=== PATIENT | male | born 1960 | race Two or more races ===

== ENCOUNTER 2019-07-25 21:28 | Emergency (ER) | payer OTHER ==
[~2019-07-25] VITALS: Ht 160 cm; Wt 59.0 kg
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
[2019-07-25] MEDS ORDERED: VITAMIN B122500 MCG PO (21:37)
--- NOTE | 2019-07-25 22:02 | NUR ---
ED Nurse Note: PT WENT TO CT VIA WHEELCHAIR
--- NOTE | 2019-07-25 22:12 | NUR ---
ED Nurse Note: pt back from ct
[2019-07-25 22:13] VITALS: BP 144/89
--- NOTE | 2019-07-25 22:20 | Diagnostic Imaging Report ---
Indication: Headache Technique: Contiguous 5 mm thick transaxial imaging of the head obtained in a Siemens Sensation [address] scanner. Soft tissue and bone windows generated. Automatic Exposure Control was utilized. Total Dose length Product (DLP): 1125.7mGycm CT Dose Index Volume (CTDIvol): 53.4 mGy Comparison: none Findings: The size and configuration of the cortical sulci, basal cisterns, and ventricles are within normal limits for age. There is no mass effect, midline shift, or edema identified. There is no evidence of acute hemorrhage or abnormal intra-axial or extra-axial fluid collections. The bones and soft tissues are unremarkable. Impression: No mass effect, edema or acute bleed. [facility] has communicated the preliminary results to the Emergency Department. Their findings are largely concordant with this report. The CT scanner at [facility] is accredited by the [employer] and the scans are performed using dose optimization techniques as appropriate to a performed exam including Automatic Exposure control.
--- NOTE | 2019-07-25 22:35 | Diagnostic Imaging Report ---
Indication: Cervical trauma/pain. Technique: Continuous helical imaging of the cervical spine was obtained transaxially from the skull base to the upper thoracic spine. 2-D coronal and sagittal reformatted images were obtained. Automatic Exposure Control was utilized. Total Dose length Product (DLP): 146.[address] Dose Index Volume (CTDIvol): 5.6 mGy Comparison: None Findings: There is no acute fracture or malalignment identified. There is no soft tissue swelling identified. 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 Some of the intervertebral discs show mild narrowing. Impression: No acute injury Mild spondylosis [facility] has communicated the preliminary results to the Emergency Department. Their findings are largely concordant with this report. The CT scanner at [facility] is accredited by the [employer] and the scans are performed using dose optimization techniques as appropriate to a performed exam including Automatic Exposure control.
[2019-07-25] MEDS ORDERED: Ketorolac 30mg Inj IV ONE (23:15)
[2019-07-25] MEDS ORDERED: ROBAXIN-750750 MG PO (23:31)
[2019-07-25] MEDS ORDERED: IBUPROFEN600 MG ORAL (23:31)
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
[2019-07-25 23:45] VITALS: BP 133/77
--- NOTE | 2019-07-25 23:45 | NUR ---
ER DISCHARGE NOTE: Patient is cleared to be discharged per ERMD, pt is aox4, on room air, with stable vital signs. pt was given dc and prescription instructions, pt was able to verbalize understanding, pt id band and iv site removed without complications. pt is able to ambulate with steady gait. pt took all belongings.
== END 2019-07-25 23:45 | disposition home or self-care (01) ==
LOC: EMR 21:50
DX: S13.9XXA Sprain of joints and ligaments of unspecified parts of neck, initial encounter (principal); S09.90XA Unspecified injury of head, initial encounter; V43.52XA Car driver injured in collision with other type car in traffic accident, initial encounter; Y92.411 Interstate highway as the place of occurrence of the external cause; Z90.81 Acquired absence of spleen
CPT/HCPCS: 70450; 72125; 96374; 99284; J1885